=== PATIENT | female | born 1990 | race Hispanic/Latino ===

== ENCOUNTER 2020-01-24 15:21 | Emergency (ER) | payer BC, SELFPAY ==
--- NOTE | 2020-01-24 17:51 | RAD REPORT ---
EXAM DESCRIPTION: USExtjoy Venous Uni Ltd01/24/2020 5:24 pm CLINICAL HISTORY: Right leg pain and swelling. COMPARISON: None. FINDINGS: Right common femoral, superficial femoral, popliteal and right posterior tibial veins are compressible and demonstrate augmentation. Doppler demonstrates good flow. IMPRESSION: No evidence of deep venous thrombosis involving the right lower extremity.
[2020-01-24 17:58] LABS: Absolute Lymphocytes (CBC) 1.1 K/uL (0.7-4.9); Basophils % 0.3 % (0-1.3); Hematocrit 25.1 % (36.0-45.0); MPV 7.8 fL (7.6-11.3)
[2020-01-24] MEDS ORDERED: ONDANSETRON 4 MG/2 ML VIAL ONE (18:09)
[2020-01-24] MEDS ORDERED: NA CHLORIDE 0.9% 500 ML ONE (18:09)
[2020-01-24] MEDS ORDERED: MORPHINE 4 MG/ML SYR ONE (18:13)
[2020-01-24 18:14] LABS: BUN Blood Urea Nitrogen 12 mg/dL (7-18); Bicarbonate 28 mmol/L (21-32); Glucose Level 101 mg/dL (74-106); Potassium 3.5 mmol/L (3.5-5.1); Sodium Level 137 mmol/L (136-145)
[2020-01-24 18:28] LABS: Urine Blood 2+ (NEG); Urine Glucose TRACE (NEG); Urine Protein TRACE (NEG); Urine pH 7.5 (5.0-7.0)
--- NOTE | 2020-01-24 18:49 | RAD REPORT ---
EXAM DESCRIPTION: CT - Pelvis Wo Cont - 01/24/2020 6:31 pm CLINICAL HISTORY: Pelvic pain COMPARISON: 2016 TECHNIQUE: Computed axial tomography of the pelvis was obtained. Contrast was not requested. Coronal and sagittal reconstruction performed All CT scans are performed using dose optimization technique as appropriate and may include automated exposure control or mA/KV adjustment according to patient size. FINDINGS: Fat has been injected into the gluteus muscles bilaterally. No hematoma. No abscess noted. Diffuse edema is present within the anterior subcutaneous tissues. An IUD is present within the uterus. No evidence of diverticulitis. No significant free fluid IMPRESSION: Fat has been injected into the gluteus muscles bilaterally. Diffuse edema is present the anterior subcutaneous tissues. This may indicate a cellulitis and should be correlated clinically
--- NOTE | 2020-01-24 19:21 | ER ---
Nurse's Notes [facility] Name: Jamilah Jimenez Age: 29 yrs Sex: Female : 1990 Arrival Date: 01/24/2020 Time: 15:25 Bed 14 Private MD: Diagnosis: Myalgia;Pain in right leg Presentation: 01/23 15:40 Chief complaint: Patient states: lipo suction and fat transfer surgery a couple of dm5 weeks ago. pain in leg with tingling and numbness. denies fever. 15:40 Method Of Arrival: Ambulatory dm5 15:40 Acuity: FARHAN 3 dm5 15:49 Note pain rated at 10/10. dm5 18:38 Coronavirus screen: The patient has NOT traveled to a country currently being monitored aj1 by the [facility] within the last 14 days. Ebola Screen: Patient denies travel to an Ebola-affected area in the 21 days before illness onset. Initial Sepsis Screen: Does the patient meet any 2 criteria? No. Patient's initial sepsis screen is negative. Does the patient have a suspected source of infection? No. Patient's initial sepsis screen is negative. Risk Assessment: Do you want to hurt yourself or someone else? Patient reports no desire to harm self or others. 18:39 Onset of symptoms was January 2020. aj1 - Immunization history:: Adult Immunizations up to date. - Social history:: Smoking status: Patient/guardian denies using tobacco. Screenin:45 Abuse screen: Denies threats or abuse. Denies injuries from another. Nutritional aj1 screening: No deficits noted. Tuberculosis screening: No symptoms or risk factors identified. 18:38 Fall Risk None identified. aj1 Assessment: 16:45 General: Appears in no apparent distress. uncomfortable, Behavior is calm, cooperative, aj1 appropriate for age. Pain: Complains of pain in right calf and right hamstring and right gluteal fold Pain does not radiate. Pain currently is 10 out of 10 on a pain scale. Quality of pain is described as burning, Aggravated by repositioning, weight bearing. Neuro: Level of Consciousness is awake, alert, obeys commands, Oriented to person, place, time, situation. Cardiovascular: Patient's skin is warm and dry. Respiratory: Airway is patent Respiratory effort is even, unlabored, Respiratory pattern is regular, symmetrical. GI: No signs and/or symptoms were reported involving the gastrointestinal system. : No signs and/or symptoms were reported regarding the genitourinary system. EENT: No signs and/or symptoms were reported regarding the EENT system. Derm: Skin is pink, warm \T\ dry. normal. Musculoskeletal: Circulation, motion, and sensation intact. 17:45 Reassessment: Patient appears in no apparent distress at this time. No changes from aj1 previously documented assessment. Patient and/or family updated on plan of care and expected duration. Pain level reassessed. Patient is alert, oriented x 3, equal unlabored respirations, skin warm/dry/pink. 18:38 Reassessment: Patient appears in no apparent distress at this time. No changes from aj1 previously documented assessment. Patient and/or family updated on plan of care and expected duration. Pain level reassessed. Patient is alert, oriented x 3, equal unlabored respirations, skin warm/dry/pink. 19:40 Reassessment: Patient appears in no apparent distress at this time. Patient is alert, aj1 oriented x 3, equal unlabored respirations, skin warm/dry/pink. Discussed d/c \T\ f/u instructions with pt; denies questions or concerns at this time. Ambulatory to lobby with steady gait. Patient states feeling better. Vital Signs: 15:49 BP 130 / 73; Pulse 102; Resp 20; Temp 98.7(O); Pulse Ox 96% on R/A; dm5 15:52 Weight 68 kg (M); dm5 19:40 BP 129 / 66; Pulse 80; Resp 16; Temp 98.2; Pulse Ox 98% on R/A; Pain 4/10; aj1 ED Course: 15:25 Patient arrived in ED. ag5 16:10 Juan Miguel Amado [facility]-C [facility] la1 16:10 Quinten Wakefield MD is Attending Physician. la1 16:43 Teri Valles, RN is Primary Nurse. aj1 16:44 Triage completed. dm5 16:45 No provider procedures requiring assistance completed. aj1 16:45 Patient has correct armband on for positive identification. Bed in low position. Call aj1 light in reach. Side rails up X 1. 17:24 Extremity Venous Uni Ltd US In Process Unspecified. EDMS 17:48 Initial lab(s) drawn, by me, sent to lab. Inserted saline lock: 20 gauge in left lt1 antecubital area, using aseptic technique. 17:51 Radiology exam delayed due to test not completed at this time. vm2 18:31 CT Pelvis wo Cont In Process Unspecified. EDMS 18:39 Arm band placed on. aj1 19:40 IV discontinued, intact, bleeding controlled, No redness/swelling at site. Pressure aj1 dressing applied. Administered Medications: 18:12 Drug: morphine 2 mg Route: IVP; Site: left antecubital; aj1 18:12 Drug: Zofran (Ondansetron) 4 mg Route: IVP; Site: left antecubital; aj1 18:34 Follow up: Response: No adverse reaction aj1 18:12 Drug: NS 0.9% 500 ml Route: IV; Rate: bolus; Site: left antecubital; aj1 18:34 Drug: morphine 2 mg Route: IVP; Site: left antecubital; aj1 18:35 Follow up: Response: No adverse reaction aj1 19:39 Drug: Motrin 600 mg Route: PO; aj1 19:39 Follow up: Response: Medication administered at discharge. aj1 Outcome: 19:20 Discharge ordered by MD. la1 19:40 Discharged to home ambulatory, with family. aj1 19:40 Condition: good 19:40 Discharge instructions given to patient, Instructed on discharge instructions, follow up and referral plans. Demonstrated understanding of instructions, follow-up care. 19:42 Patient left the ED. aj1 Signatures: Dispatcher [employer] Trei Carter RN RN aj1 Caterina Wilder RN RN dm5 Juan Miguel Amado, TURNTABLE ENGINEER-C TURNTABLE ENGINEER-Cla1 Justine Moreau 2 Moriah Mccord Leah [facility]
--- NOTE | 2020-01-24 19:22 | EDPHYS ---
Physician Documentation [facility] Name: Jamilah Jimenez Age: 29 yrs Sex: Female : 1990 Arrival Date: 01/24/2020 Time: 15:25 Bed 14 Private MD: ED Physician Quinten Wakefield HPI: 01/23 16:43 This 29 yrs old Female presents to ER via Ambulatory with complaints of Post la1 Surgical Pain, Leg Pain, Numbness, Buttock Pain. 16:43 The patient presents with pain, that is acute. The complaints affect the right gluteal la1 fold, right hamstring and right calf. Context: resulted from sx, the patient can partially bear weight, the patient is able to ambulate, with moderate difficulty. Onset: The symptoms/episode began/occurred 2 day(s) ago. Modifying factors: The symptoms are alleviated by nothing. the symptoms are aggravated by movement, weight bearing. Associated signs and symptoms: Pertinent negatives calf tenderness, fever, nausea, rash, swelling, tingling, vomiting, weakness. Severity of symptoms: At their worst the symptoms were moderate. The patient has not experienced similar symptoms in the past. pt had sx in [place] in late December with liposuction and had the fat placed in her gluteal area, pt reports that 2 days ago she began having pain in the right gluteus, right leg. . - Immunization history:: Adult Immunizations up to date. - Social history:: Smoking status: Patient/guardian denies using tobacco. ROS: 16:45 Constitutional: Negative for fever, chills, and weight loss, Eyes: Negative for injury, la1 pain, redness, and discharge, ENT: Negative for injury, pain, and discharge, Neck: Negative for injury, pain, and swelling, Cardiovascular: Negative for chest pain, palpitations, and edema, Respiratory: Negative for shortness of breath, cough, wheezing, and pleuritic chest pain, Abdomen/GI: Negative for abdominal pain, nausea, vomiting, diarrhea, and constipation, Back: Negative for injury and pain. 16:45 MS/extremity: Positive for pain, of the buttocks and right leg, Negative for abrasion, erythema, laceration, rash, warmth. Exam: 16:45 Constitutional: This is a well developed, well nourished patient who is awake, alert, la1 and in no acute distress. Head/Face: Normocephalic, atraumatic. Eyes: Pupils equal round and reactive to light, extra-ocular motions intact. ENT: Mucous membranes moist. Neck: Trachea midline,Supple, full range of motion without nuchal rigidity, or vertebral point tenderness. No Meningismus. Chest/axilla: Normal chest wall appearance and motion. Nontender with no deformity. No lesions are appreciated. Cardiovascular: Regular rate and rhythm with a normal S1 and S2. Respiratory: Lungs have equal breath sounds bilaterally, clear to auscultation Abdomen/GI: Soft, non-tender, with normal bowel sounds. Back: No spinal tenderness. No costovertebral tenderness. Full range of motion. Skin: Warm, dry with normal turgor. Normal color with no rashes, no lesions, and no evidence of cellulitis. MS/ Extremity: Pulses equal, no cyanosis. Pain upon palpation to the right gluteus, no surrounding redness, swelling, cellulitis, drainage. Vital Signs: 15:49 BP 130 / 73; Pulse 102; Resp 20; Temp 98.7(O); Pulse Ox 96% on R/A; dm5 15:52 Weight 68 kg (M); dm5 19:40 BP 129 / 66; Pulse 80; Resp 16; Temp 98.2; Pulse Ox 98% on R/A; Pain 4/10; aj1 MDM: 16:16 Patient medically screened. la1 19:16 Differential diagnosis: Abscess, necrotizing fasciitis, cellulitis, erythema, edema. la1 Data reviewed: vital signs, nurses notes. Data interpreted: Pulse oximetry: on room air is 96 %. Interpretation: normal. Counseling: I had a detailed discussion with the patient and/or guardian regarding: the historical points, exam findings, and any diagnostic results supporting the discharge/admit diagnosis, lab results, radiology results, the need for outpatient follow up, a general surgeon, to return to the emergency department if symptoms worsen or persist or if there are any questions or concerns that arise at home. Medication response: morphine markedly relieved the patient's pain. Symptoms have improved. Response to treatment: the patient's symptoms have mildly improved after treatment, and as a result, I will discharge patient. Special discussion: I discussed in detail with the patient the higher chance of wound infection based on his presenting history. ED course: no significant elevation in WBC count, no cellulitis, no erythema, no abscess or acute changes on the CT report in the area where the pt is experiencing pain. Pt informed of high risk level for infection and strict return precautions should she get worse in any way or has any new symptoms.. ED course: Pt is on augmentin and was instructed to finish whole course of abx. 01/23 16:30 Order name: CBC with Diff; [facility]30 Order name: BMP; Complete [facility]: [facility] 01/[facility] 16:30 Order name: Extremity Venous Uni Ltd US; Complete [facility]: [facility] 01/23 17:48 Order name: CT Pelvis wo Cont; Complete [facility]: 18:55 [facility] 01/23 18:22 Order name: Urine Dipstick--Ancillary (enter results); Complete Time: 18:55 nd01/23 18:23 Order name: Urine --Ancillary (enter results); Complete [facility]: 18:55 [facility] 01/23 16:30 Order name: IV; Complete [facility]: [facility]:49 [facility] 01/23 16:30 Order name: Urine Dipstick-Ancillary (obtain specimen); Complete [facility]: 18:43 [facility] 01/23 16:30 Order name: Urine Test (obtain specimen); Complete Time: 18:43 la Administered Medications: 18:12 Drug: morphine 2 mg Route: IVP; Site: left antecubital; aj1 18:12 Drug: Zofran (Ondansetron) 4 mg Route: IVP; Site: left antecubital; aj1 18:34 Follow up: Response: No adverse reaction aj1 18:12 Drug: NS 0.9% 500 ml Route: IV; Rate: bolus; Site: left antecubital; aj1 18:34 Drug: morphine 2 mg Route: IVP; Site: left antecubital; aj1 18:35 Follow up: Response: No adverse reaction aj1 19:39 Drug: Motrin 600 mg Route: PO; aj1 19:39 Follow up: Response: Medication administered at discharge. aj1 Disposition: 01/24 07:05 Co-signature as Attending Physician, Quinten Wakefield MD I agree with the assessment and kdr plan of care. Disposition: 03/11/20 19:20 Discharged to Home. Impression: Myalgia, Pain in right leg. - Condition is Stable. - Discharge Instructions: Musculoskeletal Pain, Muscle Pain, Adult. - Medication Reconciliation Form, Thank You Letter, Antibiotic Education form. - Follow up: Private Physician; When: 2 - 3 days; Reason: Recheck today's complaints, Re-evaluation by your physician. Follow up: Emergency Department; When: As needed; Reason: Worsening of condition. Signatures: Dispatcher [employer] EDTeri Valero RN RN aj1 Quinten Wakefield MD MD kdr Juan Miguel Amado, BULK PICKER-C BULK PICKER-Cla1 Corrections: (The following items were deleted from the chart) 01/23 19:42 19:20 01/24/2020 19:20 Discharged to Home. Impression: Myalgia; Pain in right leg. aj1 Condition is Stable. Forms are Medication Reconciliation Form, Thank You Letter, Antibiotic Education, Prescription Opioid Use. Follow up: Private Physician; When: 2 - 3 days; Reason: Recheck today's complaints, Re-evaluation by your physician. Follow up: Emergency Department; When: As needed; Reason: Worsening of condition. la1
[2020-01-24] MEDS ORDERED: IBUPROFEN 400 MG TAB ONE (19:38)
[2020-01-24] MEDS ORDERED: IBUPROFEN 200 MG TAB PO ONE (19:38)
[2020-01-24 20:01] VITALS: BP 129/66; TEMP 98.2; O2SAT 98
== END 2020-01-24 19:42 | disposition home or self-care (01) ==
LOC: ER 15:21
DX: M79.604 Pain in right leg (principal); M79.18 Myalgia, other site; Z98.890 Other specified postprocedural states
CPT/HCPCS: 36415; 72192; 80048; 81003; 81025; 85025; 93971; 96374; 96375; 99284; J2405; J7040

== ENCOUNTER 2020-02-05 15:40 | Emergency (ER) | payer SELFPAY ==
--- NOTE | 2020-02-05 16:25 | ER ---
Nurse's Notes [facility] Name: Jamilah Jimenez Age: 29 yrs Sex: Female : 1990 Arrival Date: 02/05/2020 Time: 15:44 Bed 13 Private MD: Diagnosis: Acute pain due to trauma-post surgical buttlift Presentation: 02/04 16:15 Chief complaint: Patient states: pain to R buttock area that radiates down R leg that ss began 2 weeks ago. Pt reports she was seen in ER, but pain has not improved. Coronavirus screen: Patient denies fever greater than 100.4F, cough, shortness of breath, or difficulty breathing. Proceed with normal triage process. Ebola Screen: Patient negative for fever greater than or equal to 101.5 degrees Fahrenheit, and additional compatible Ebola Virus Disease symptoms Patient denies exposure to infectious person. Patient denies travel to an Ebola-affected area in the 21 days before illness onset. Initial Sepsis Screen: Does the patient meet any 2 criteria? HR > 90 bpm. Does the patient have a suspected source of infection? No. Patient's initial sepsis screen is negative. Risk Assessment: Do you want to hurt yourself or someone else? Patient reports no desire to harm self or others. 16:15 Method Of Arrival: Ambulatory ss 16:15 Acuity: FARHAN 4 ss Historical: - Allergies: 16:18 No Known Allergies; ss - Home Meds: 16:18 None [Active]; ss - PMHx: 16:18 None; ss - PSHx: 16:18 liposuction make over in [place] (December 2019); ss - Immunization history:: Adult Immunizations up to date. - Social history:: Smoking status: Patient denies any tobacco usage or history of. Screenin:30 Abuse screen: Denies threats or abuse. Denies injuries from another. Nutritional ph screening: No deficits noted. Tuberculosis screening: No symptoms or risk factors identified. Fall Risk None identified. Assessment: 16:30 General: Appears in no apparent distress. uncomfortable, slender, well groomed, ph Behavior is calm, cooperative, appropriate for age, Denies fever, feeling ill. Pain: Complains of pain in right gluteus wil Pain radiates to right leg. Neuro: Level of Consciousness is awake, alert, obeys commands, Oriented to person, place, time, situation. Cardiovascular: Capillary refill < 3 seconds in bilateral fingers Patient's skin is warm and dry. Respiratory: Airway is patent Respiratory effort is even, unlabored. Derm: Skin is intact, Skin is pink, warm \T\ dry. Vital Signs: 16:14 BP 108 / 72; Pulse 106; Resp 18; Temp 98.2(TE); Pulse Ox 96% on R/A; Weight 68.04 kg; ss Height 5 ft. 2 in. (157.48 cm); Pain 10/10; 16:31 BP 112 / 65; Pulse 97; Resp 16; Pulse Ox 100% on R/A; dh3 16:14 Body Mass Index 27.44 (68.04 kg, 157.48 cm) ED Course: 15:44 Patient arrived in ED. mr 15:52 Carley Castro [facility]-C [facility]. snw 15:52 Gonzalo Saleh MD is Attending Physician. snw 16:14 Arm band placed on right wrist. ss 16:17 Triage completed. ss 16:23 Karyn Jacobsen, RN is Primary Nurse. ph 16:30 Patient has correct armband on for positive identification. Bed in low position. Call ph light in reach. Side rails up X 1. 16:55 No provider procedures requiring assistance completed. Patient did not have IV access ph during this emergency room visit. Administered Medications: 16:46 Drug: TORadol 30 mg Route: IM; Site: right deltoid; ph 16:59 Follow up: Response: No adverse reaction ph Outcome: 16:23 Discharge ordered by MD. snw 16:59 Patient left the ED. ph 16:59 Discharged to home ambulatory. ph 16:59 Condition: good 16:59 Discharge instructions given to patient, Instructed on discharge instructions, follow up and referral plans. medication usage, Demonstrated understanding of instructions, follow-up care, medications, Prescriptions given X 2. Signatures: Carley Castro FNP-C FNP-Hali Mily MoDigna, RN RN Karyn Jacobsen RN RN Angeline Orona [facility] Corrections: (The following items were deleted from the chart) 16:18 16:15 Acuity: FARHAN 4 ss ss 16:21 16:15 Acuity: FARHAN 3 ss
--- NOTE | 2020-02-05 16:26 | EDPHYS ---
Physician Documentation [facility] Name: Jamilah Jimenez Age: 29 yrs Sex: Female : 1990 Arrival Date: 02/05/2020 Time: 15:44 Bed 13 Private MD: ED Physician Gonzalo Saleh HPI: 02/04 16:55 This 29 yrs old Female presents to ER via Ambulatory with complaints of Leg snw Pain. 16:55 The patient presents with pain, that is acute. The complaints affect the right gluteus snw wil. Context: The problem was sustained s/p "Mommy make over" in [place], three weeks ago, the patient can partially bear weight. Onset: The symptoms/episode began/occurred 2 week(s) ago, and became persistent. Associated signs and symptoms: The patient has no apparent associated signs or symptoms. Treatment prior to arrival includes: applying pressure to the affected area. Severity of symptoms: At their worst the symptoms were moderate. The patient has not experienced similar symptoms in the past. as noted. Historical: - Allergies: 16:18 No Known Allergies; ss - Home Meds: 16:18 None [Active]; ss - PMHx: 16:18 None; ss - PSHx: 16:18 liposuction make over in [place] (December 2019); ss - Immunization history:: Adult Immunizations up to date. - Social history:: Smoking status: Patient denies any tobacco usage or history of. ROS: 16:49 Constitutional: Negative for fever, chills, and weight loss, Eyes: Negative for injury, snw pain, redness, and discharge, ENT: Negative for injury, pain, and discharge, Neck: Negative for injury, pain, and swelling, Cardiovascular: Negative for chest pain, palpitations, and edema, Respiratory: Negative for shortness of breath, cough, wheezing, and pleuritic chest pain, Abdomen/GI: Negative for abdominal pain, nausea, vomiting, diarrhea, and constipation, Back: Negative for injury and pain, : Negative for injury, bleeding, discharge, and swelling, Skin: Negative for injury, rash, and discoloration, Neuro: Negative for headache, weakness, numbness, tingling, and seizure, Psych: Negative for depression, anxiety, suicide ideation, homicidal ideation, and hallucinations. 16:49 MS/extremity: Positive for pain, severe pain to right buttock with rad down to right posterior ankle . Exam: 16:48 Constitutional: This is a well developed, well nourished patient who is awake, alert, snw and in no acute distress. Head/Face: Normocephalic, atraumatic. Eyes: Pupils equal round and reactive to light, extra-ocular motions intact. Lids and lashes normal. Conjunctiva and sclera are non-icteric and not injected. Cornea within normal limits. Periorbital areas with no swelling, redness, or edema. ENT: Nares patent. No nasal discharge, no septal abnormalities noted. Tympanic membranes are normal and external auditory canals are clear. Oropharynx with no redness, swelling, or masses, exudates, or evidence of obstruction, uvula midline. Mucous membranes moist. Neck: Trachea midline, no thyromegaly or masses palpated, and no cervical lymphadenopathy. Supple, full range of motion without nuchal rigidity, or vertebral point tenderness. No Meningismus. Chest/axilla: Normal chest wall appearance and motion. Nontender with no deformity. No lesions are appreciated. Cardiovascular: Regular rate and rhythm with a normal S1 and S2. No gallops, murmurs, or rubs. Normal PMI, no JVD. No pulse deficits. Respiratory: Lungs have equal breath sounds bilaterally, clear to auscultation and percussion. No rales, rhonchi or wheezes noted. No increased work of breathing, no retractions or nasal flaring. Abdomen/GI: Soft, non-tender, with normal bowel sounds. No distension or tympany. No guarding or rebound. No evidence of tenderness throughout. MS/ Extremity: Pulses equal, no cyanosis. Neurovascular intact. Full, normal range of motion. Neuro: Awake and alert, GCS 15, oriented to person, place, time, and situation. Cranial nerves II-XII grossly intact. Motor strength 5/5 in all extremities. Sensory grossly intact. Cerebellar exam normal. Normal gait. Psych: Awake, alert, with orientation to person, place and time. Behavior, mood, and affect are within normal limits. 16:48 Back: pain, of the sacrum, muscle spasm, right buttock pain, radiating down to posterior ankle , mild sacral bruising, no erythema, dc. Vital Signs: 16:14 BP 108 / 72; Pulse 106; Resp 18; Temp 98.2(TE); Pulse Ox 96% on R/A; Weight 68.04 kg; ss Height 5 ft. 2 in. (157.48 cm); Pain 10/10; 16:31 BP 112 / 65; Pulse 97; Resp 16; Pulse Ox 100% on R/A; dh3 16:14 Body Mass Index 27.44 (68.04 kg, 157.48 cm) ss MDM: 16:23 Patient medically screened. snw 16:47 Data reviewed: vital signs, nurses notes. Data interpreted: Pulse oximetry: on room air snw is 100 %. Interpretation: normal. Counseling: I had a detailed discussion with the patient and/or guardian regarding: the historical points, exam findings, and any diagnostic results supporting the discharge/admit diagnosis, the need for outpatient follow up, to return to the emergency department if symptoms worsen or persist or if there are any questions or concerns that arise at home. Response to treatment: the patient's symptoms have mildly improved after treatment. Special discussion: Based on the history and exam findings, there is no indication for further emergent testing or inpatient evaluation. I discussed with the patient/guardian the need to see the primary care provider for further evaluation of the symptoms. 02/04 16:22 Order name: Recheck VS; Complete Time: 16:34 snw Administered Medications: 16:46 Drug: TORadol 30 mg Route: IM; Site: right deltoid; ph 16:59 Follow up: Response: No adverse reaction ph Disposition: 17:23 Co-signature as Attending Physician, Gonzalo Saleh MD. rn Disposition: 02/05/20 16:23 Discharged to Home. Impression: Acute pain due to trauma - post surgical buttlift. - Condition is Stable. - Discharge Instructions: Muscle Pain, Adult. - Prescriptions for Diclofenac Sodium 75 mg Oral Tablet Sustained Release - take 1 tablet by ORAL route 2 times per day; 30 tablet. orphenadrine citrate 100 mg Oral Tablet Sustained Release - take 1 tablet by ORAL route 2 times per day As needed; 20 tablet. - Medication Reconciliation Form, Thank You Letter, Antibiotic Education, Prescription Opioid Use, Work release form form. - Follow up: Emergency Department; When: As needed; Reason: Worsening of condition. Follow up: Private Physician; When: 2 - 3 days; Reason: Recheck today's complaints, Continuance of care, Re-evaluation by your physician. Signatures: Carley Castro, MANDOLIN REPAIRER-C MANDOLIN REPAIRER-Csnw Gonzalo Saleh MD MD rn [facility] RN RN Karyn Jacobsen RN RN Corrections: (The following items were deleted from the chart) 16:55 16:48 Back: pain, of the sacrum, muscle spasm, right buttock pain, radiating down to snw posterior ankle , snw 16:59 16:23 02/05/2020 16:23 Discharged to Home. Impression: Acute pain due to trauma - post ph surgical buttlift. Condition is Stable. Forms are Medication Reconciliation Form, Thank You Letter, Antibiotic Education, Prescription Opioid Use. Follow up: Emergency Department; When: As needed; Reason: Worsening of condition. Follow up: Private Physician; When: 2 - 3 days; Reason: Recheck today's complaints, Continuance of care, Re-evaluation by your physician. snw
[2020-02-05] MEDS ORDERED: KETOROLAC 30 MG/ML INJ ONE (16:45)
[2020-02-05 17:16] VITALS: TEMP 98.2
[2020-02-05 17:17] VITALS: BP 112/65; O2SAT 100
== END 2020-02-05 16:59 | disposition home or self-care (01) ==
LOC: ER 15:40
DX: G89.11 Acute pain due to trauma (principal); Z98.890 Other specified postprocedural states
CPT/HCPCS: 96372; 99283

== ENCOUNTER 2023-04-23 10:52 | Emergency (ER) | payer SELFPAY ==
[2023-04-23 12:05] LABS: Absolute Lymphocytes (CBC) 1.7 K/uL (0.7-4.9); Hematocrit 39.6 % (36.0-45.0); Lymphocytes % 11.6 % (15.3-44.8); MPV 8.9 fL (7.6-11.3); RBC Red Blood Cell Count 4.55 M/uL (3.86-4.86)
[2023-04-23 12:11] LABS: Urine Bacteria 20-50 /HPF (<20); Urine Mucus 2+ /HPF (None Seen); Urine RBC >50 /HPF (None Seen)
[2023-04-23 12:22] LABS: Albumin 4.6 g/dL (3.4-5.0); Bilirubin Total 1.7 mg/dL (0.2-1.0); Potassium 3.7 mEq/L (3.5-5.1); Protein, Total 8.3 g/dL (6.4-8.2)
--- NOTE | 2023-04-23 13:13 | ER ---
Nurse's Notes [facility] Name: Jamilah Suárez Age: 32 yrs Sex: Female : 1990 Arrival Date: 04/23/2023 Time: 10:52 Bed IW1 Private MD: Diagnosis: Pyelonephritis acute Presentation: 04/23 11:08 Chief complaint: Patient states: Mirena removed 03/29/23. Bleeding while urinating, ld1 spotting, Abd/pelvic cramping. Coronavirus screen: At this time, the client does not indicate any symptoms associated with coronavirus-19. Ebola Screen: No symptoms or risks identified at this time. Initial Sepsis Screen: Does the patient meet any 2 criteria? No. Patient's initial sepsis screen is negative. Does the patient have a suspected source of infection? No. Patient's initial sepsis screen is negative. Risk Assessment: Do you want to hurt yourself or someone else? Patient reports no desire to harm self or others. Onset of symptoms was April 23, 2023. 11:08 Method Of Arrival: Ambulatory ld1 11:08 Acuity: FARHAN 3 ld1 Triage Assessment: 11:09 General: Appears in no apparent distress. comfortable, Behavior is calm, cooperative, ld1 appropriate for age. Pain: Complains of pain in abdomen and pelvis Pain does not radiate. Pain currently is 9 out of 10 on a pain scale. Quality of pain is described as throbbing. EENT: No signs and/or symptoms were reported regarding the EENT system. Neuro: Level of Consciousness is awake, alert, obeys commands, Oriented to person, place, time, situation. Cardiovascular: Capillary refill < 3 seconds Patient's skin is warm and dry. Respiratory: Airway is patent Respiratory effort is even, unlabored. GI: Abdomen is flat, non-distended. : No signs and/or symptoms were reported regarding the genitourinary system. Derm: No signs and/or symptoms reported regarding the dermatologic system. Musculoskeletal: No signs and/or symptoms reported regarding the musculoskeletal system. Historical: - Allergies: 11: No Known Allergies; ld1 - PMHx: 11: None; ld1 - PSHx: 11: None; ld1 - Immunization history:: Adult Immunizations up to date, Client reports receiving the 2nd dose of the Covid vaccine. - Social history:: Smoking status: Patient denies any tobacco usage or history of. Patient/guardian denies using alcohol. Screenin:36 [facility] ED Fall Risk Assessment (Adult) History of falling in the last 3 months, ss including since admission No falls in past 3 months (0 pts). Abuse screen: Denies threats or abuse. Denies injuries from another. Nutritional screening: No deficits noted. Tuberculosis screening: Never had TB. Assessment: 13:36 General: Appears in no apparent distress. Neuro: Level of Consciousness is awake, ss alert, obeys commands. Respiratory: Airway is patent Respiratory effort is even, unlabored, Respiratory pattern is regular, symmetrical. Derm: Skin is intact, is healthy with good turgor, Skin is pink, warm \T\ dry. normal. Vital Signs: 11:08 BP 171 / 90; Pulse 86; Resp 18; Temp 98.1(TE); Pulse Ox 99% on R/A; Weight 68.04 kg; ld1 Height 5 ft. 4 in. ; Pain 10/10; 11:08 Body Mass Index 25.75 (68.04 kg, 162.56 cm) ld1 11:08 Pain Scale: Adult ld1 ED Course: 11:07 Patient arrived in ED. ld1 11:08 Demarco Ruiz DO is Attending Physician. ms3 11:09 Triage completed. ld1 11:09 Arm band placed on right wrist. ld1 11:52 Initial lab(s) drawn, by ok, sent to lab. Urine collected: clean catch specimen, blood zm tinged, sediment noted. Inserted saline lock: 20 gauge in right antecubital area, using aseptic technique. Blood collected. 11:54 CBC with Diff Sent. zm 11:54 CMP Sent. zm 11:54 Lipase Sent. zm 13:11 Chris Frey DO is Referral Physician. ms3 13:28 Digna Craft, TEJ is Primary Nurse. ss 13:36 Patient has correct armband on for positive identification. ss 13:36 No provider procedures requiring assistance completed. Patient did not have IV access ss during this emergency room visit. Administered Medications: 13:36 Not Given (pt states she will fill RX and take at home as med is not readily available ss in ED): cefPODOXime PO 200 mg PO once Medication: 13:36 VIS not applicable for this client. ss Outcome: 13:12 Discharge ordered by . ms3 13:36 Discharged to home ambulatory. ss 13:36 Condition: good 13:36 Discharge instructions given to patient, Instructed on discharge instructions, follow up and referral plans. medication usage, Demonstrated understanding of instructions, follow-up care, medications, Prescriptions given X 1. 13:37 Patient left the ED. ss Addendum: 04/25/2023 12:10 Addendum: Culture Results: Positive urine culture. Bacteria is resistant to, has a a5 intermediate sensitivity, or is not tested against prescribed antibiotics. Report given to LUKE for further evaluation and then to steamtable worker for follow up with patient. Phone call Attempt #1 checked on patient [id number], pt reports feeling better and symptoms improved. No need for further treatment at this time per AKIRA León. Signatures: Carolyne Rubi, RN RN aa5 Digna Griffith RN RN ss Demarco Ruiz, DO ms3 Anisha Ruiz RN RN ld1 Leslye Cortez Corrections: (The following items were deleted from the chart) 04/23 12:07 11:54 Urinalysis+U.LAB.BRZ drawn and sent. EDMS
--- NOTE | 2023-04-23 13:13 | EDPHYS ---
Physician Documentation [facility] Name: Jamilah Suárez Age: 32 yrs Sex: Female : 1990 Arrival Date: 04/23/2023 Time: 10:52 Bed IW1 Private MD: ED Physician Demarco Ruiz HPI: 04/23 11:37 This 32 yrs old Female presents to ER via Ambulatory with complaints of ms3 Urinary Problem, PASSING BLOOD CLOTS. 11:37 32-year-old female with no past medical history presents for dysuria, urinary ms3 frequency, hematuria. Patient states her discomfort is in the lower abdomen and rated 10/10. Patient denies vaginal discharge, fevers, chills, nausea, vomiting.. Historical: - Allergies: 11:09 No Known Allergies; ld1 - PMHx: 11:09 None; ld1 - PSHx: 11:09 None; ld1 - Immunization history:: Adult Immunizations up to date, Client reports receiving the 2nd dose of the Covid vaccine. - Social history:: Smoking status: Patient denies any tobacco usage or history of. Patient/guardian denies using alcohol. ROS: 11:38 Positive for urinary symptoms, urinary frequency, hematuria, burning with urination. ms3 11:38 Constitutional: Negative for fever, and chills. Neck: Negative for injury, pain, and swelling, Cardiovascular: Negative for chest pain, and palpitations. Respiratory: Negative for shortness of breath, cough, wheezing, and pleuritic chest pain, Abdomen/GI: Negative for abdominal pain, nausea, vomiting, diarrhea, and constipation, MS/Extremity: Negative for injury and deformity, Skin: Negative for injury, rash, and discoloration. 11:38 All other systems are negative. Exam: 11:38 Constitutional: This is a well developed, well nourished patient who is awake, alert, ms3 and in no acute distress. Head/Face: Normocephalic, atraumatic. Neck: Trachea midline, no cervical lymphadenopathy. Supple, full range of motion without nuchal rigidity, or vertebral point tenderness. No Meningismus. Chest/axilla: Normal chest wall appearance and motion. Nontender with no deformity. Cardiovascular: Regular rate and rhythm with a normal S1 and S2. No gallops, murmurs, or rubs. Normal PMI, no JVD. No pulse deficits. Respiratory: Lungs have equal breath sounds bilaterally, clear to auscultation and percussion. No rales, rhonchi or wheezes noted. No increased work of breathing, no retractions or nasal flaring. Abdomen/GI: Soft, non-tender, with normal bowel sounds. No distension or tympany. No guarding or rebound. No evidence of tenderness throughout. Skin: Warm, dry with normal turgor. Normal color with no rashes, no lesions, and no evidence of cellulitis. MS/ Extremity: Pulses equal, no cyanosis. Neurovascular intact. Full, normal range of motion. 11:38 Back: CVA tenderness, is absent. ms3 Vital Signs: 11:08 BP 171 / 90; Pulse 86; Resp 18; Temp 98.1(TE); Pulse Ox 99% on R/A; Weight 68.04 kg; ld1 Height 5 ft. 4 in. ; Pain 10/10; 11:08 Body Mass Index 25.75 (68.04 kg, 162.56 cm) ld1 11:08 Pain Scale: Adult ld1 MDM: 11:27 Patient medically screened. ms3 11:38 Differential diagnosis: nonspecific abdominal pain, urinary tract infection. ms3 21:01 Data reviewed: vital signs, nurses notes, lab test result(s), and as a result, I will ms3 discharge patient. I considered the following discharge prescriptions or medication management in the emergency department. Care significantly affected by the following Social Determinants of Health: Poor access to healthcare and/or lack of insurance. Counseling: I had a detailed discussion with the patient and/or guardian regarding: the historical points, exam findings, and any diagnostic results supporting the discharge/admit diagnosis, lab results, the need for outpatient follow up, to return to the emergency department if symptoms worsen or persist or if there are any questions or concerns that arise at home. Special discussion: I discussed with the patient/guardian in detail that at this point there is no indication for admission to the hospital. It is understood, however, that if the symptoms persist or worsen the patient needs to return immediately for re-evaluation. ED course: Discussed labs with patient. Patient given prescription for Vantin 200 mg p.o. twice daily x10 days. Patient to follow-up with Dr. Frey in 2 to 3 days. Patient stands and agrees with plan. All questions were answered. Return precautions discussed include weakness, inability to tolerate p.o., worsening symptoms, or any other concerns. On reevaluation patient is alert and oriented x4, no apparent distress, nontoxic-appearing. 04/23 11:11 Order name: CBC with Diff; Complete Time: 13:01 ld1 04/23 11:11 Order name: CMP; Complete Time: 13:01 ld1 04/23 11:11 Order name: Lipase; Complete Time: 13:01 ld1 04/23 12:07 Order name: Urine Microscopic Only; Complete Time: 13:01 EDMS 04/23 12:14 Order name: Urine Culture EDMS 04/23 12:06 Order name: EKG; Complete Time: 12:07 ms3 04/23 11:11 Order name: IV Saline Lock; Complete Time: 11:54 ld1 04/23 11:11 Order name: Labs collected and sent; Complete Time: 11:54 ld1 Administered Medications: 13:36 Not Given (pt states she will fill RX and take at home as med is not readily available ss in ED): cefPODOXime PO 200 mg PO once Disposition: 21:12 Chart complete. ms3 Disposition Summary: 04/23/23 13:12 Discharge Ordered Location: Home ms3 Condition: Stable ms3 Diagnosis - Pyelonephritis acute ms3 Followup: ms3 - With: Chris Frey DO - When: 2 - 3 days - Reason: Recheck today's complaints Discharge Instructions: - Discharge Summary Sheet ms3 - Pyelonephritis, Adult, [id number] ms3 Forms: - Medication Reconciliation Form ms3 - Thank You Letter ms3 - Antibiotic Education ms3 - Prescription Opioid Use ms3 Prescriptions: - cefpodoxime 200 mg Oral Tablet - take 1 tablet by ORAL route every 12 hours with food; 20 tablet; Refills: 0, ms3 Product Selection Permitted Signatures: Dispatcher MedHo EDWI Demarco Ruiz DO DO ms3 Anisha Ruiz RN RN ld1 Digna Griffith RN ss Corrections: (The following items were deleted from the chart) 11:38 11:37 32-year-old female with no past medical history presents for dysuria, urinary ms3 frequency, hematuria that began. ms3 12:07 11:12 Urinalysis+U.LAB.BRZ ordered. EDMS EDMS 13:28 12:06 EKG - Nurse/Tech ordered. ms3 mm9
[2023-04-23 13:41] VITALS: BP 171/90; TEMP 98.1; O2SAT 99
== END 2023-04-23 13:37 | disposition home or self-care (01) ==
LOC: ER 10:52
DX: N10 Acute pyelonephritis (principal)
CPT/HCPCS: 36415; 80053; 81015; 83690; 85025; 87077; 87086; 87088; 87186; 99283